=== PATIENT | male | born 1980 | race Caucasian/White ===

== ENCOUNTER 2016-10-28 09:39 | Emergency (ER) | payer SELFPAY ==
[2016-10-28 09:47] VITALS: O2SAT 96
[2016-10-28] MEDS ORDERED: XYLOCAINE 2% HCL 20 ML MDV ONE (10:03)
--- NOTE | 2016-10-28 10:25 | ERPHSYRPT ---
- History of Present Illness Time Seen by Provider: 10/28/16 10:00 Source: patient Exam Limitations: clinical condition Patient Subjective Stated Complaint: lt middle finger abscess Triage Nursing Assessment: abscess around lt middle finger nailbed. yellow drainage noted this morning. radial pulse present. no injury noted Physician History: PATIENT COMPLAINS OF PAIN WITH SWELLING AND YELLOW DISCOLORATION AT BASE OF LEFT MIDDLE FINGER NAIL. HAS SEVERE PAIN, DENIES FEVER OR CHILLS. Occurred: days ago Method of Injury: unknown Quality: constant Severity of Pain-Max: moderate Severity of Pain-Current: moderate Extremities Pain Location: 3rd finger: left Modifying Factors: Improves With: movement Associated Symptoms: other (PAIN) Allergies/Adverse Reactions: No Known Drug Allergies Allergy (Unverified 10/28/16 09:47) Home Medications: No Home Meds 1 ea UD 10/28/16 [History] Hx Tetanus, Diphtheria Vaccination/Date Given: Yes Hx Influenza Vaccination/Date Given: No Hx Pneumococcal Vaccination/Date Given: No Immunizations Up to Date: Yes - Review of Systems Constitutional: No Fever, No Chills Musculoskeletal: Joint Pain, Joint Swelling All Other Systems: Reviewed and Negative - Past Medical History Pertinent Past Medical History: No - Past Surgical History Past Surgical History: No - Social History Smoking Status: Current every day smoker Exposure to second hand smoke: No Drug Use: none Patient Lives Alone: No - Nursing Vital Signs Nursing Vital Signs: Initial Vital Signs Temperature 97.9 F Temperature Source Oral Pulse Rate 80 Respiratory Rate 18 Blood Pressure [Right Arm] 139/94 Pain Intensity 7 - Physical Exam General Appearance: alert Hand Exam: swelling (SWELLING NAIL FOLD WITH YELLOW ERYTHRMA, PURULENT DRAINAGE FROM NAIL FOLD) Neuro/Tendon Exam: normal sensation, normal motor functions SpO2 Interpretation: normal SpO2: 96 Oxygen Delivery: Room Air Procedures - Incision and Drainage Site: NAIL FOLD LEFT MIDDLE Anesthesia: 2% Lidocaine cc's of anesthesia: 4 Blade Size: 11 I & D Procedure: hibiclens prep Results: large amount pus Ordered Tests: Active Orders 24 hr Category Date Time Status CULTURE,WOUND Stat Lab 10/28/16 10:17 Ordered Medication Summary Discontinued Medications Generic Name Dose Route Start Last Admin Trade Name Freq PRN Reason Stop Dose Admin Diphtheria/Tetanus/Acell Pertussis 0.5 ml 10/28/16 10:26 10/28/16 10:33 Adacel Vial IM 10/28/16 10:27 0.5 ml .ONCE ONE Administration Diphtheria/Tetanus/Acell Pertussis Confirm 10/28/16 10:30 Adacel Vial Administered 10/28/16 10:31 Dose 0.5 ml IM .STK-MED ONE Lidocaine HCl Confirm 10/28/16 10:03 Xylocaine 2% Hcl 20 Ml Mdv Administered 10/28/16 10:04 Dose 4 ml .ROUTE .STK-MED ONE - Progress Progress: improved Counseled pt/family regarding: diagnosis, need for follow-up - Departure Time of Disposition: 10:35 Departure Disposition: Home Clinical Impression: I/D PARONYCHIA ABSCESS LEFT MIDDLE DIGIT Condition: Stable Critical Care Time: No Referrals: MINH SMITH [Primary Care Provider] - Additional Instructions: NORCO 10/325 EVERY 4 HOURS FOR PAIN NEEDED. ANTIBIOTIC AUGMENTIN 875MG TWICE DAILY FOR 10 DAYS, WEAR LOOSE BANDAID WHILE AT WORK, LEAVE OPEN TO AIR AT NIGHT. WATCH FOR INCREASING SIGNS OF INFECTION, REDNESS, SWELLING OR DRAINAGE. CONSULT YOUR FAMILY PHYSICIAN IN 1 WEEK FOR FOLLOWUP. Prescriptions: Hydrocodone/APAP 10/325 mg [[place] 10/325 MG Tablet] 1 tab PO Q4H PRN PRN # 20 tablet PRN Reason: Pain Amox Tr/Potass Clav. 875 mg [Augmentin 875-125 Tablet] 875 mg PO BID #20 tablet
[2016-10-28] MEDS ORDERED: Adacel Vial IM ONE ×2 (10:26→10:30)
[2016-10-28 10:53] VITALS: BP 126/96; PULSE 82
== END 2016-10-28 10:50 | disposition home or self-care (01) ==
LOC: ED 09:39
PROC: 0H9GXZZ Drainage of Left Hand Skin, External Approach (ICD-10-PCS; principal; 2016-10-28)
DX: L02.512 Cutaneous abscess of left hand (principal)
CPT/HCPCS: 10060; 29515; 87070; 87077; 87186; 90471; 90715; 99283

== ENCOUNTER 2018-02-23 14:33 | Emergency (ER) | payer OTHER ==
--- NOTE | 2018-02-23 15:12 | ERPHSYRPT ---
- History of Present Illness Time Seen by Provider: 02/23/18 15:01 Source: patient Exam Limitations: no limitations Patient Subjective Stated Complaint: pt reports claudia 2-3 wks ago he got finger of left hand caught between 2 pieces of metal-reports swelling and pain to finger-concerned he might have infection in it Triage Nursing Assessment: pt pink warm and qtc-[id number] and redness noted to knuckle of left finger-no drainage noted-resp easy and nonlabored Physician History: 37-year-old white male arrives with complaint of pain in his left index finger symptoms for 2 weeks. Patient states he smashed it at work. He states he's been swelling over the PIP joint dorsally. He states the area has been red. He has not gotten any drainage from the area. Past medical history is negative. Past surgical history negative. Last tetanus 4 years ago. Occurred: other (2 weeks ago) Method of Injury: other (Caught between pieces of metal at work) Quality: constant Severity of Pain-Max: mild Severity of Pain-Current: mild Extremities Pain Location: 2nd finger: left Modifying Factors: Improves With: nothing Associated Symptoms: none Allergies/Adverse Reactions: No Known Drug Allergies Allergy (Verified 02/23/18 14:43) Home Medications: No Home Meds [No Home Meds] 1 gale TATA 10/28/16 [History] Hx Tetanus, Diphtheria Vaccination/Date Given: Yes Hx Influenza Vaccination/Date Given: No Hx Pneumococcal Vaccination/Date Given: No Immunizations Up to Date: Yes - Review of Systems Constitutional: No Fever, No Chills Eyes: No Symptoms Ears, Nose, & Throat: No Symptoms Respiratory: No Cough, No Dyspnea Cardiac: No Chest Pain, No Edema, No Syncope Abdominal/Gastrointestinal: No Abdominal Pain, No Nausea, No Vomiting, No Diarrhea Genitourinary Symptoms: No Dysuria Musculoskeletal: Other (pain and swelling left index finger) Skin: Other (erythema left dorsal PIP joint second finger) Neurological: No Dizziness, No Focal Weakness, No Sensory Changes Psychological: No Symptoms Endocrine: No Symptoms All Other Systems: Reviewed and Negative - Past Medical History Pertinent Past Medical History: No - Past Surgical History Past Surgical History: No - Social History Smoking Status: Current every day smoker How long have you smoked: yrs Exposure to second hand smoke: Yes Drug Use: none Patient Lives Alone: No - Nursing Vital Signs Nursing Vital Signs: Initial Vital Signs Temperature 98.2 F 02/23/18 14:40 Pulse Rate 64 02/23/18 14:40 Respiratory Rate 18 02/23/18 14:40 Blood Pressure 142/93 02/23/18 14:40 O2 Sat by Pulse Oximetry 98 02/23/18 14:40 Pain Scale Pain Intensity 5 - Physical Exam General Appearance: alert Eyes, Ears, Nose, Throat Exam: moist mucous membranes Neck Exam: non-tender, supple Cardiovascular/Respiratory Exam: chest non-tender Abdominal Exam: non-tender, No guarding Back Exam: normal inspection, No vertebral tenderness Shoulder Exam: normal inspection, non-tender, no evidence of injury, normal ROM Elbow/Forearm Exam: normal inspection, non-tender, no evidence of injury, normal ROM Wrist Exam: normal inspection, non-tender, no evidence of injury, normal ROM Hand Exam: No normal inspection (patient with a chronically 2 mm area of scar tissue left dorsal second PIP joint (hand) mild surrounding edema area not hot full range of motion all fingers, good capillary refill all fingers.) Neuro/Tendon Exam: normal sensation, normal motor functions Mental Status Exam: alert, oriented x 3, cooperative Skin Exam: normal color, warm, dry SpO2 Interpretation: normal (98%) SpO2: 98 Oxygen Delivery: Room Air - Course Nursing assessment & vital signs reviewed: Yes - Radiology Exams Left Other X-ray Interpretation: Interpreted by me (x ray left index finger: no fracture, no subluxation) Ordered Tests: Active Orders 24 hr Category Date Time Status FINGER(S) Stat Exams 02/23/18 15:36 Taken - Progress Progress: improved Progress Note: 02/23/18 15:11 This is a 37-year-old white male who states he caught his left index finger between 2 pieces of metal at work tonight half weeks ago he states he has been having swelling overlying the left dorsal PIP joint he states he had some drainage about a week ago he states he's had a mild erythema to the area. On physical examination patient has what appears to be old scar tissue overlying the left dorsal PIP joint there is some slight edema to the area I don 't see obvious erythema at this time however patient states it has been hot. Will go ahead and get an x-ray of the left index finger. Will go ahead and consider Bactrim DS one orally twice a day for 10 days. 02/23/18 15:43 x ray lef index finger is negative will place patient on bactrrim , advil or tylenol - Departure Time of Disposition: 15:44 Departure Disposition: Home Clinical Impression: Contusion of left index finger Qualifiers: Encounter type: initial encounter Damage to nail status: without damage Qualified Code(s): S60.022A - Contusion of left index finger without damage to nail, initial encounter Condition: Fair Critical Care Time: No Referrals: MINH SMITH [Primary Care Provider] - Additional Instructions: Return home. Bactrim DS one orally twice a day for 10 days. Tylenol every 4 hours or Motrin every 6 hours as needed for pain. Follow-up with your family doctor or company physician. Return for acute distress or for severe symptoms. Prescriptions: Smz/Tmp Ds Tablet [Bactrim Ds Tablet] 1 tab PO BID #20 tablet
[2018-02-23] MEDS ORDERED: BACTRIM DS TABLET PO ONE ×2 (15:46→15:48)
[2018-02-23 16:01] VITALS: BP 141/88; PULSE 60; O2SAT 99
--- NOTE | 2018-02-23 21:54 | XRAY ---
Indication: Crush injury 4-5 weeks ago. Comparison: None 3 views of the left second finger demonstrates posterior PIP focal soft tissue swelling. No other bony, articular, or soft tissue abnormalities.
== END 2018-02-23 16:00 | disposition home or self-care (01) ==
LOC: ED 14:33
DX: S60.022A Contusion of left index finger without damage to nail, initial encounter (principal); W23.0XXA Caught, crushed, jammed, or pinched between moving objects, initial encounter; Y92.69 Other specified industrial and construction area as the place of occurrence of the external cause; Y99.0 Civilian activity done for income or pay
CPT/HCPCS: 73140; 99283; A9270-GY

== ENCOUNTER 2021-01-15 20:57 | Emergency (ER) | payer OTHER, SELFPAY ==
[2021-01-15 21:04] VITALS: BP 133/95; PULSE 98; O2SAT 96
--- NOTE | 2021-01-15 21:23 | ERPHSYRPT ---
- History of Present Illness Time Seen by Provider: 01/15/21 21:18 Source: patient Exam Limitations: no limitations Patient Subjective Stated Complaint: pt states, "I have a bad tooth, I think an abscess". Triage Nursing Assessment: pt c/o swelling and pain to rt lower jaw tooth. Pt states, "I have a bad tooth, think it's an abscess now". It's been hurting x1 month but has gotten worse the last 2 days. I have a dentist appointment in 2 weeks but couldn't wait. Pt has swelling and pain to rt lower jaw, no drainage noted. Physician History: pt has had pain right lower tooth for a few months and noted swelling x 1 day. swallowing OK in ER . tender right lower molar with percussion reporducing pain exactly. some swelling lateral without palp fluctuance. supple neck without tenderness, normal digastric and floor of mouth. multiple carries. discussed risk and benefit of CT and pt wishes to proceed. Timing/Duration: gradual onset, yesterday Severity: moderate ENT Location: dental Prearrival Treatment: over the counter meds Modifying Factors: Improves With: nothing Associated Symptoms: facial pain/swelling, jaw pain, tooth pain, No poor fluid intake, No sore throat, No difficulty swallowing, No voice change Allergies/Adverse Reactions: No Known Drug Allergies Allergy (Verified 01/15/21 21:15) Hx Tetanus, Diphtheria Vaccination/Date Given: Yes Hx Influenza Vaccination/Date Given: No Hx Pneumococcal Vaccination/Date Given: No Immunizations Up to Date: Yes Travel Risk - International Travel Have you traveled outside of the country in past 3 weeks: No - Coronavirus Screening Are you exhibiting any of the following symptoms?: No Close contact with a COVID-19 positive Pt in past 14-21 Days: No - Vaccine Status Have you recieved a Covid-19 vaccination: No - Review of Systems Constitutional: No Fever, No Chills Eyes: No Symptoms Ears, Nose, & Throat: Other (right lower dental pain and swelling) Respiratory: No Cough, No Dyspnea Cardiac: No Chest Pain, No Edema, No Syncope Abdominal/Gastrointestinal: No Abdominal Pain, No Nausea, No Vomiting, No Diarrhea Genitourinary Symptoms: No Dysuria Musculoskeletal: No Back Pain, No Neck Pain Skin: No Rash Neurological: No Dizziness, No Focal Weakness, No Sensory Changes Psychological: No Symptoms Endocrine: No Symptoms All Other Systems: Reviewed and Negative - Past Medical History Pertinent Past Medical History: No Neurological History: No Pertinent History ENT History: No Pertinent History Cardiac History: No Pertinent History Respiratory History: No Pertinent History Endocrine Medical History: No Pertinent History Musculoskeletal History: No Pertinent History GI Medical History: No Pertinent History History: No Pertinent History Psycho-Social History: No Pertinent History Male Reproductive Disorders: No Pertinent History - Past Surgical History Past Surgical History: No Neuro Surgical History: No Pertinent History Cardiac: No Pertinent History Respiratory: No Pertinent History Gastrointestinal: No Pertinent History Genitourinary: No Pertinent History Musculoskeletal: No Pertinent History Male Surgical History: No Pertinent History - Social History Smoking Status: Light tobacco smoker How long have you smoked: yrs Exposure to second hand smoke: Yes Drug Use: none Patient Lives Alone: No - Nursing Vital Signs Nursing Vital Signs: Initial Vital Signs Temperature 98.8 F 01/15/21 21:02 Pulse Rate 98 H 01/15/21 21:02 Respiratory Rate 16 01/15/21 21:02 Blood Pressure 133/95 01/15/21 21:02 O2 Sat by Pulse Oximetry 96 01/15/21 21:02 Pain Scale Pain Intensity 6 - Physical Exam General Appearance: no apparent distress, alert Eye Exam: bilateral eye: PERRL, EOMI Ear Exam: bilateral ear: auricle normal, canal normal, TM normal Nasal Exam: normal inspection Throat Exam: pharynx normal, dental tenderness (right lower molar), mandibular swelling, moist mucus membranes, No excessive drooling, No pharynx swelling, No pharynx tenderness, No tongue swollen, No tonsillar exudate, No tonsillar swelling, No trismus, No uvula swelling, No voice changes Neck Exam: normal inspection, non-tender, supple, full range of motion, trachea midline Cardiovascular/Respiratory Exam: normal breath sounds, regular rate/rhythm Abdominal Exam: non-tender, soft Neurologic Exam: alert, oriented x 3, sensation nml, No motor deficits Skin Exam: normal color, warm, dry SpO2: 96 - Course Nursing assessment & vital signs reviewed: Yes - CT Exams Maxillofacial Bones CT Interpretation: Tele-radiologist Report, Other (right tooth apical abscess with cellulitis , no pointing or floor involvment) Ordered Tests: Active Orders 24 hr Category Date Time Status FACIAL BONES WO CONTRAST [CT] Stat Exams 01/15/21 21:23 Taken CBC W DIFF Stat Lab 01/15/21 21:24 Completed Lab/Rad Data: Laboratory Result Diagrams 01/15/21 21:24 Laboratory Results 01/15/21 Range/Units 21:24 WBC 7.9 (4.0-10.5) K/mm3 RBC 4.99 (4.1-5.6) M/mm3 Hgb 15.1 (12.5-18.0) gm/dl Hct 45.7 (42-50) % MCV 91.6 (78-100) fl MCH 30.3 (26-32) pg MCHC 33.0 (32-36) g/dl RDW 13.0 (11.5-14.0) % Plt Count 187 (150-450) K/mm3 MPV 10.1 (7.5-11.0) fl Gran % 65.2 (36.0-66.0) % Eos # (Auto) 0.05 (0-0.5) Absolute Lymphs (auto) 2.04 (1.0-4.6) Absolute Monos (auto) 0.64 (0.0-1.3) Lymphocytes % 26.0 (24.0-44.0) % Monocytes % 8.1 (0.0-12.0) % Eosinophils % 0.6 (0.00-5.0) % Basophils % 0.1 (0.0-0.4) % Absolute Granulocytes 5.12 (1.4-6.9) Basophils # 0.01 (0-0.4) - Progress Progress: improved, re-examined Counseled pt/family regarding: lab results, diagnosis, need for follow-up, rad results - Departure Departure Disposition: Home Clinical Impression: Dental abscess Condition: Good Critical Care Time: No Referrals: MINH LOPES [ACTIVE STAFF] - Instructions: Tooth Abscess (DC), Tooth Decay, Adult (DC) Additional Instructions: see your dentist or a dentist SAMANTHA this week to removed the tooth to drain abscess. return meantime if not improving, vomiting, increased swelling, fever, trouble swallowing or other concerns. Prescriptions: Amox Tr/Potass Clav. 875 mg [Augmentin 875-125 Tablet] 875 mg PO BID #20 tablet
[2021-01-15 21:41] LABS: Absolute Neutrophil Ct (ANC) 5.12 (1.4-6.9); BASOPHIL % 0.1 % (0.0-0.4); Basophil (Absolute #) 0.01 (0-0.4); Eosinophil % 0.6 % (0.00-5.0); Eosinophil (Absolute #) 0.05 (0-0.5); Hematocrit 45.7 % (42-50); Hemoglobin 15.1 gm/dl (12.5-18.0); Lymphocyte (Absolute #) 2.04 (1.0-4.6); Mean Cell Volume 91.6 fl (78-100); Mean Corpuscular Hemoglobin 30.3 pg (26-32); Mean Platelet Volume 10.1 fl (7.5-11.0); Monocyte (Absolute #) 0.64 (0.0-1.3); Monocytes % 8.1 % (0.0-12.0); Neutrophil % 65.2 % (36.0-66.0); Platelet Count 187 K/mm3 (150-450); Red Blood Count 4.99 M/mm3 (4.1-5.6); White Blood Count 7.9 K/mm3 (4.0-10.5)
[2021-01-15] MEDS ORDERED: Augmentin 875-125 Tablet PO ONE (22:32)
[2021-01-15] MEDS ORDERED: Augmentin 875-125 Tablet ONE (22:44)
--- NOTE | 2021-01-16 07:29 | XRAY ---
Indication: Right facial pain and edema from dental caries. Multiple contiguous axial images obtained through the facial bones. Sagittal and coronal reformatted images obtained. Comparison: None No acute fracture, suspicious bony lesions, or radiopaque foreign body. Orbits including roof, triplett, and floors are intact. Mild right and minimal left maxillary floor mucosal thickening. Remaining paranasal sinuses and nasal passages are clear. There are multiple bilateral dental caries. Right jaw demonstrates mild soft tissue swelling without walled off fluid collection or air possibly cellulitis in the right clinical setting. A few centimeter/subcentimeter cervical and submandibular lymph nodes. Prominent adenoids and palatine tonsils narrows the oropharynx. TMJ bilaterally symmetric. Remaining visualized noncontrasted soft tissues including globes and base of the brain unremarkable. Impression: 1. Right jaw soft tissue swelling. Rule out cellulitis. 2. Multiple bilateral dental caries. 3. Prominent adenoids and tonsils. 4. Bilateral maxillary sinus disease. Comment: Preliminary interpretation was made by [facility]. No critical discrepancy.
== END 2021-01-15 22:59 | disposition home or self-care (01) ==
LOC: ED 20:57
DX: K04.7 Periapical abscess without sinus (principal)
CPT/HCPCS: 36415; 70486; 85025; 99284; A9270-GY

== ENCOUNTER 2022-03-31 14:21 | Emergency (ER) | payer OTHER ==
[2022-03-31 14:33] VITALS: O2SAT 98
--- NOTE | 2022-03-31 14:45 | ERPHSYRPT ---
- History of Present Illness Time Seen by Provider: 03/31/22 14:22 Patient Subjective Stated Complaint: Abscess Triage Nursing Assessment: Patient ambulated back to ED and transferred self to bed. Patient A+O X 3. Patient's skin pink, warm and dry. Patient complains of abscess to left groin area. Patient complains of pain /. Patient states last Saturday he noticed two small red raised areas that have gotten worse. Patient has two abscess's noted to left groin. No drainage noted. Allergies/Adverse Reactions: No Known Drug Allergies Allergy (Verified 03/31/22 14:27) Hx Tetanus, Diphtheria Vaccination/Date Given: Yes Hx Influenza Vaccination/Date Given: No Hx Pneumococcal Vaccination/Date Given: No Immunizations Up to Date: Yes Travel Risk - International Travel Have you traveled outside of the country in past 3 weeks: No - Coronavirus Screening Are you exhibiting any of the following symptoms?: No Close contact with a COVID-19 positive Pt in past 14-21 Days: No - Vaccine Status Have you recieved a Covid-19 vaccination: No - Past Medical History Pertinent Past Medical History: No Neurological History: No Pertinent History ENT History: No Pertinent History Cardiac History: No Pertinent History Respiratory History: No Pertinent History Endocrine Medical History: No Pertinent History Musculoskeletal History: No Pertinent History GI Medical History: No Pertinent History History: No Pertinent History Psycho-Social History: No Pertinent History Male Reproductive Disorders: No Pertinent History - Past Surgical History Past Surgical History: No Neuro Surgical History: No Pertinent History Cardiac: No Pertinent History Respiratory: No Pertinent History Gastrointestinal: No Pertinent History Genitourinary: No Pertinent History Musculoskeletal: No Pertinent History Male Surgical History: No Pertinent History - Social History Smoking Status: Light tobacco smoker How long have you smoked: yrs Exposure to second hand smoke: Yes Drug Use: none Patient Lives Alone: No - Nursing Vital Signs Nursing Vital Signs: Initial Vital Signs Temperature 97.7 F 03/31/22 14:27 Pulse Rate 62 03/31/22 14:27 Respiratory Rate 18 03/31/22 14:27 Blood Pressure 119/77 03/31/22 14:27 O2 Sat by Pulse Oximetry 98 03/31/22 14:27 Pain Scale Pain Intensity 6 - Physical Exam SpO2: 98 - Departure Departure Disposition: Home Clinical Impression: Cellulitis of groin, left Condition: Stable Critical Care Time: No Referrals: STEFANO JOE [COURTESY STAFF] - Follow up/PCP as directed ALIE RODRIGUEZ MD [ACTIVE STAFF] - Follow up/PCP as directed Instructions: Wound Infection Prescriptions: Clindamycin HCl 150 mg [Cleocin 150 mg Capsule] 2 cap PO QID #56 cap
[2022-03-31 14:57] VITALS: BP 114/77; PULSE 88
== END 2022-03-31 15:01 | disposition home or self-care (01) ==
LOC: ED 14:21
DX: L03.314 Cellulitis of groin (principal); Z72.0 Tobacco use; Z28.310 Unvaccinated for COVID-19
CPT/HCPCS: 99281

== ENCOUNTER 2022-03-31 14:26 | Emergency (ER) | payer OTHER | END 2022-03-31 14:38 | disposition left against medical advice (07) | LOC: ED 14:26 | DX: Z53.8 Procedure and treatment not carried out for other reasons (principal) | CPT/HCPCS: 99281 ==

== ENCOUNTER 2023-06-21 17:06 | Emergency (ER) | payer OTHER ==
--- NOTE | 2023-06-21 17:15 | ERPHSYRPT ---
- History of Present Illness Time Seen by Provider: 06/21/23 17:15 Source: patient Exam Limitations: no limitations Physician History: This a 42-year-old white male patient who presents with left cheek swelling. He has a history of dental abscess in the past but he does not feel that it is a dental issue. He has no dental pain. However, he wonders if he was bitten by an insect during the night. He went to bed not having left cheek swelling and woke up with the left cheek swollen. Patient's significant other provided independent, additional history. Patient has no known drug allergies. He has no breathing issues. Timing/Duration: today Severity: mild Associated Symptoms: denies symptoms Allergies/Adverse Reactions: No Known Drug Allergies Allergy (Verified 06/21/23 17:17) Hx Tetanus, Diphtheria Vaccination/Date Given: Yes Hx Influenza Vaccination/Date Given: No Hx Pneumococcal Vaccination/Date Given: No Travel Risk - International Travel Have you traveled outside of the country in past 3 weeks: No - Coronavirus Screening Are you exhibiting any of the following symptoms?: No Close contact with a COVID-19 positive Pt in past 14-21 Days: No - Vaccine Status Have you recieved a Covid-19 vaccination: No - Review of Systems Constitutional: No Symptoms Eyes: No Symptoms Ears, Nose, & Throat: Other (Swelling left cheek) Respiratory: No Symptoms Cardiac: No Symptoms Abdominal/Gastrointestinal: No Symptoms Genitourinary Symptoms: No Symptoms Musculoskeletal: No Symptoms Skin: Cellulitis (Mild, left cheek), Other (Swelling with mild redness left cheek) Neurological: No Symptoms Psychological: No Symptoms Endocrine: No Symptoms Hematologic/Lymphatic: No Symptoms Immunological/Allergic: No Symptoms All Other Systems: Reviewed and Negative - Past Medical History Pertinent Past Medical History: No Neurological History: No Pertinent History ENT History: No Pertinent History Cardiac History: No Pertinent History Respiratory History: No Pertinent History Endocrine Medical History: No Pertinent History Musculoskeletal History: No Pertinent History GI Medical History: No Pertinent History History: No Pertinent History Psycho-Social History: No Pertinent History Male Reproductive Disorders: No Pertinent History - Past Surgical History Past Surgical History: No Neuro Surgical History: No Pertinent History Cardiac: No Pertinent History Respiratory: No Pertinent History Gastrointestinal: No Pertinent History Genitourinary: No Pertinent History Musculoskeletal: No Pertinent History Male Surgical History: No Pertinent History - Social History Smoking Status: Light tobacco smoker How long have you smoked: yrs Exposure to second hand smoke: Yes Drug Use: none Patient Lives Alone: No - Nursing Vital Signs Nursing Vital Signs: Initial Vital Signs Temperature 97.4 F 06/21/23 17:16 Pulse Rate 120 H 06/21/23 17:16 Respiratory Rate 18 06/21/23 17:16 Blood Pressure 131/97 06/21/23 17:16 O2 Sat by Pulse Oximetry 95 06/21/23 17:16 Pain Scale Pain Intensity 4 - Physical Exam General Appearance: no apparent distress, alert, anxiety, thin Eye Exam: PERRL/EOMI, eyes nml inspection Ears, Nose, Throat Exam: normal ENT inspection, moist mucous membranes Neck Exam: normal inspection, non-tender, supple, full range of motion Respiratory Exam: normal breath sounds, lungs clear, airway intact, No chest tenderness, No respiratory distress Cardiovascular Exam: tachycardia Gastrointestinal/Abdomen Exam: soft, normal bowel sounds, No tenderness Rectal Exam: not done Back Exam: normal inspection, normal range of motion, No CVA tenderness, No vertebral tenderness Extremity Exam: normal inspection, normal range of motion, pelvis stable Neurologic Exam: alert, oriented x 3, cooperative, cargo services coordinator II-XII nml as tested, normal mood/affect, nml cerebellar function, nml station & gait, sensation nml Skin Exam: other (Left cheek swelling with mild redness present. No abscess appreciated) Lymphatic Exam: No adenopathy SpO2 Interpretation: normal O2 Delivery: Room Air - Course Nursing assessment & vital signs reviewed: Yes Ordered Tests: Medication Summary Discontinued Medications Generic Name Dose Route Start Last Admin Trade Name Loki PRN Reason Stop Dose Admin Ceftriaxone Sodium 1,000 mg 06/21/23 17:56 Ceftriaxone Sodium 1000 Mg Inj Vial IM 06/21/23 17:57 STAT ONE Methylprednisolone Sodium 0 mg 06/21/23 17:56 Succinate 125 mg/ Sterile IM 06/21/23 17:57 Water 2 ml STAT ONE - Progress Progress: unchanged Progress Note: 06/21/23 18:01 Patient's medical issue is 1 of low complexity. Level complex in the work-up performed is based on review of the patient's past medical history, review the patient's medication list, review the patient's drug allergy list, history of present illness and physical findings on examination. No laboratory or radiographic studies are necessary. This patient looks to have may be mild cellulitis present without the presence of an abscess. He could possibly have allergic reaction well. We will provide him with Rocephin intramuscularly as well as Solu-Medrol intramuscularly. We will then remotely send to his pharmacy prednisone 10 mg 3 times a day for 4 days and a prescription for Bactrim DS. Counseled pt/family regarding: diagnosis, need for follow-up Medical Desision Making - Independent Historian Additional History obtained from: Spouse - Diagnostic Testing Diagnostic test were ordered, analyzed, and reviewed by me: No - Risk of complications The pt has a mod risk of morbidity or mortality based on: Need for prescription drug management - Departure Departure Disposition: Home Clinical Impression: Cheek swelling Condition: Stable Critical Care Time: No Referrals: PHILIP REBOLLEDO [Primary Care Provider] - Follow up/PCP as directed Additional Instructions: Take your medication as prescribed. Return to emergency department if symptoms worsen. Prescriptions: Smz/Tmp Ds Tablet [Bactrim Ds Tablet] 1 udtab PO BID #14 tablet Prednisone 10 mg [Deltasone 10 mg] 10 mg PO TID #12 tablet
[2023-06-21 17:16] VITALS: BP 131/97; PULSE 120; RESP 18; TEMP 97.4; O2SAT 95
[2023-06-21] MEDS ORDERED: solu-MEDROL 125 MG, Sterile H2O 10 ml 2 ML IM ONE ×2 (17:56)
[2023-06-21] MEDS ORDERED: Rocephin 1000 MG INJ IM ONE (17:56)
[2023-06-21] MEDS ORDERED: Rocephin 1000 MG INJ ONE (18:10)
[2023-06-21] MEDS ORDERED: Sterile H2O 10 ml IJ ONE (18:10)
[2023-06-21] MEDS ORDERED: XYLOCAINE 1% HCL 20 ML MDV ONE (18:10)
[2023-06-21] MEDS ORDERED: solu-MEDROL ONE (18:10)
== END 2023-06-21 18:37 | disposition home or self-care (01) ==
LOC: ED 17:06
DX: R22.0 Localized swelling, mass and lump, head (principal); Z79.52 Long term (current) use of systemic steroids; Z28.310 Unvaccinated for COVID-19; Z72.0 Tobacco use
CPT/HCPCS: 96372; 99283; J0696; J2930

== ENCOUNTER 2024-05-25 13:47 | Emergency (ER) | payer SELFPAY ==
[2024-05-25 14:02] VITALS: PULSE 86; TEMP 98.3
--- NOTE | 2024-05-25 14:26 | ERPHSYRPT ---
- History of Present Illness Time Seen by Provider: 05/25/24 13:49 Historian: patient, family Exam Limitations: no limitations Patient Subjective Stated Complaint: Pt was contstipated a couple of weeks ago and he treated it with miralax and other stuff and he stated that he had felt really bloated and like he was having a severe gas pain and then he finally had a bowel movement and then if he ate he would feel the same way, pt finally had a large bowel movement the other day and so he ate a lot and now his abdomen hurts again in the RLQ Triage Nursing Assessment: Pt brought to the ER by his girlfriend, hypertensive, rates pain as 5/10, reports severe abdominal pain to the RQ when he eats, states that it feels like severe gas, pulses normal, skin n/w/d, no difficulty breathing, doesn't appear to be in any distress Physician History: Constipation and upper abdominal pain for last 2 weeks intermittently. Patient took laxative and then finally had a bowel movement. Patient says that when he eats he feels gassy in the stomach. No bleeding anywhere. No fever or chills. No vomiting. Timing/Duration: week(s) (2) Activities at Onset: none Quality: cramping, fullness Abdominal Pain Onset Location: RUQ, LUQ Pain Radiation: no radiation Severity of Pain-Max: moderate Severity of Pain-Current: moderate Modifying Factors: Improves With: nothing Associated Symptoms: other (Constipation and gassy feeling), No diaphoresis, No diarrhea Allergies/Adverse Reactions: No Known Drug Allergies Allergy (Verified 05/25/24 14:02) Hx Tetanus, Diphtheria Vaccination/Date Given: Yes Hx Influenza Vaccination/Date Given: No Hx Pneumococcal Vaccination/Date Given: No Travel Risk - International Travel Have you traveled outside of the country in past 3 weeks: No - Emerging Infectious Disease Are you exhibiting symptoms associated with any current EIDs: Yes Symptoms: Abdominal Pain - Review of Systems Constitutional: No Fever, No Chills Eyes: No Symptoms Ears, Nose, & Throat: No Symptoms Respiratory: No Cough, No Dyspnea Cardiac: No Chest Pain, No Edema, No Syncope Abdominal/Gastrointestinal: Abdominal Pain, Nausea, Constipation, No Vomiting, No Diarrhea Genitourinary Symptoms: No Dysuria Musculoskeletal: No Back Pain, No Neck Pain Skin: No Rash Neurological: No Dizziness, No Focal Weakness, No Sensory Changes Psychological: No Symptoms Endocrine: No Symptoms All Other Systems: Reviewed and Negative - Past Medical History Pertinent Past Medical History: No Neurological History: No Pertinent History ENT History: No Pertinent History Cardiac History: No Pertinent History Respiratory History: No Pertinent History Endocrine Medical History: No Pertinent History Musculoskeletal History: No Pertinent History GI Medical History: No Pertinent History History: No Pertinent History Psycho-Social History: No Pertinent History Male Reproductive Disorders: No Pertinent History - Past Surgical History Past Surgical History: No Neuro Surgical History: No Pertinent History Cardiac: No Pertinent History Respiratory: No Pertinent History Gastrointestinal: No Pertinent History Genitourinary: No Pertinent History Musculoskeletal: No Pertinent History Male Surgical History: No Pertinent History - Social History Smoking Status: Current every day smoker How long have you smoked: vapes Exposure to second hand smoke: Yes Drug Use: none Patient Lives Alone: No - Social Determinants of Health Will the patient participate in the screening: Yes Do you worry about a steady place to live?: No Do you have any problems with any of the following?: No known problems In the past 12 months,have you had to go without utilities?: No Transportation Issues: No Has anyone in your support network made you feel unsafe?: No Have you or anyone in your house had to go without enough: No - Nursing Vital Signs Nursing Vital Signs: Initial Vital Signs Temperature 98.3 F 05/25/24 13:51 Pulse Rate 86 05/25/24 13:51 Blood Pressure 143/93 05/25/24 13:51 O2 Sat by Pulse Oximetry 99 05/25/24 13:51 Pain Scale Pain Intensity 6 - Physical Exam General Appearance: no apparent distress, alert Eye Exam: PERRL/EOMI, eyes nml inspection Ears, Nose, Throat Exam: normal ENT inspection, pharynx normal, moist mucous membranes Neck Exam: normal inspection, non-tender, supple, full range of motion Respiratory Exam: normal breath sounds, lungs clear, No respiratory distress Cardiovascular Exam: regular rate/rhythm, normal heart sounds Gastrointestinal/Abdomen Exam: soft, normal bowel sounds, No tenderness, No distention, No mass, No ecchymosis, No pulsatile mass, No rebound Back Exam: normal inspection, normal range of motion, No CVA tenderness, No vert ebral tenderness Extremity Exam: normal inspection, normal range of motion, pelvis stable Neurologic Exam: alert, oriented x 3, cooperative, normal mood/affect, nml cerebellar function, sensation nml, No motor deficits Skin Exam: normal color, warm, dry SpO2: 99 - Course Nursing assessment & vital signs reviewed: Yes - CT Exams Abdomen/Pelvis CT Interpretation: Other (Nothing acute) Ordered Tests: Active Orders 24 hr Category Date Time Status ABDOMEN AND PELVIS W CONTRAST [CT] Stat Exams 05/25/24 14:11 Completed AMYLASE Stat Lab 05/25/24 14:35 Completed CBC W DIFF Stat Lab 05/25/24 14:35 Completed CMP Stat Lab 05/25/24 14:35 Completed LIPASE Stat Lab 05/25/24 14:35 Completed UA W/RFX UR CULTURE Stat Lab 05/25/24 14:14 Completed Medication Summary Discontinued Medications Generic Name Dose Route Start Last Admin Trade Name Freq PRN Reason Stop Dose Admin Sodium Chloride 1,000 mls @ 999 mls/hr 05/25/24 14:10 05/25/24 16:24 Sodium Chloride 0.9% 1000 Ml IV 05/25/24 15:10 Infused .Q1H1M STA Infusion Sodium Chloride Confirm 05/25/24 14:31 Sodium Chloride 0.9% 1000 Ml Administered 05/25/24 14:32 Dose 1,000 mls @ ud .ROUTE .STK-MED ONE Morphine Sulfate 2 mg 05/25/24 14:26 05/25/24 14:41 Morphine Sulfate 2 Mg/Ml Inj IV 05/25/24 14:27 2 mg STAT ONE Administration Morphine Sulfate Confirm 05/25/24 14:31 Morphine Sulfate 2 Mg/Ml Inj Administered 05/25/24 14:32 Dose 2 mg .ROUTE .STK-MED ONE Ondansetron HCl 4 mg 05/25/24 14:26 05/25/24 14:38 Ondansetron Hcl 4 Mg/2 Ml Vial IV 05/25/24 14:27 4 mg STAT ONE Administration Ondansetron HCl Confirm 05/25/24 14:30 Ondansetron Hcl 4 Mg/2 Ml Vial Administered 05/25/24 14:31 Dose 4 mg .ROUTE .STK-MED ONE Lab/Rad Data: Laboratory Result Diagrams 05/25/24 14:35 05/25/24 14:35 Laboratory Results 05/25/24 05/25/24 05/25/24 Range/Units 14:35 14:35 14:14 WBC 5.4 (4.23-9.07) x10^3/uL RBC 4.94 (4.63-6.08) x10^6/uL Hgb 14.9 (13.7-17.5) g/dL Hct 43.8 (40.1-51.0) % MCV 88.7 (79.0-92.2) fL MCH 30.2 (25.7-32.2) pg MCHC 34.0 (32.3-36.5) g/dL RDW 12.0 (11.6-14.4) % Plt Count 172 (163-337) x10^3/uL MPV 9.6 (9.4-12.4) fL Gran % 62.3 (34.0-67.9) % Immature Gran % (Auto) 0.2 (0.001-0.429) % Nucleat RBC Rel Count 0.0 (0.00-0.2) % Eos # (Auto) 0.25 (0.04-0.54) x10^3/uL Immature Gran # (Auto) 0.01 (0.001-0.031) x10^3u/L Absolute Lymphs (auto) 1.33 (1.32-3.57) x10^3/uL Absolute Monos (auto) 0.40 (0.30-0.82) x10^3/uL Absolute Nucleated RBC 0.00 (0.00-0.012) x10^3u/L Lymphocytes % 24.8 (21.8-53.1) % Monocytes % 7.4 (5.3-12.2) % Eosinophils % 4.7 (0.8-7.0) % Basophils % 0.6 (0.2-1.2) % Absolute Granulocytes 3.35 (1.78-5.38) x10^3/uL Basophils # 0.03 (0.01-0.08) x10^3/uL Sodium 142 (135-145) mmol/L Potassium 3.8 (3.5-5.1) mmol/L Chloride 107 (98-107) mmol/L Carbon Dioxide 25 (22-30) mmol/L Anion Gap 13.1 (5-15) MEQ/L BUN 7 L (9-20) mg/dL Creatinine 0.91 (0.66-1.25) mg/dL Estimated GFR 107.9 ML/MIN Glucose 102 (74-106) mg/dL Calcium 9.0 (8.4-10.2) mg/dL Total Bilirubin 0.70 (0.2-1.3) mg/dL AST 32 (17-59) U/L ALT 28 (0-50) U/L Alkaline Phosphatase 66 (38-126) U/L Serum Total Protein 6.7 (6.3-8.2) g/dL Albumin 3.8 (3.5-5.0) g/dL Amylase 75 (30-110) U/L Lipase 23 (23-300) U/L Urine Color Yellow (Yellow) Urine Appearance Clear (Clear) Urine pH 7.0 (4.6-8.0) Ur Specific [place] 1.010 (1.005-1.030) Urine Protein Negative (Negative) Urine Glucose (UA) Negative (Negative) mg/dL Urine Ketones Negative (Negative) Urine Blood Negative (Negative) Urine Nitrite Negative (Negative) Urine Bilirubin Negative (Negative) Urine Urobilinogen 0.2 (0.2) mg/dL Ur Leukocyte Esterase Negative (Negative) U Hyaline Cast (Auto) NONE SEEN (0-2) /LPF Urine Microscopic RBC 0-2 (0-5) /HPF Urine Microscopic WBC 0-2 (0-5) /HPF Ur Epithelial Cells None Seen (None Seen) /HPF Urine Bacteria None Seen (None Seen) /HPF Urine Culture Reflexed NO (NO) - Progress Progress: improved Medical Desision Making - Risk of complications Low Risk: Low risk of morbidity from additional dx testing or treatment - Departure Departure Disposition: Home Clinical Impression: Abdominal pain Qualifiers: Abdominal location: upper abdomen, unspecified Qualified Code(s): R10.10 - Upper abdominal pain, unspecified Condition: Stable Critical Care Time: No Referrals: PHILIP REBOLLEDO [Primary Care Provider] - Follow up/PCP as directed Additional Instructions: See web content manager for upper GI endoscopy and see PCP for outpatient ultrasound of the gallbladder. Prescriptions: Sucralfate 1 gm [Carafate 1 GM] 1 g PO ACHS 15 Days #30 tablet PANTOPRAZOLE 40 mg Tablet [Protonix 40MG Tablet] 40 mg PO QAM 15 Days #15 tab
[2024-05-25] MEDS ORDERED: Zofran 4 MG/2 ML VIAL ONE (14:30)
[2024-05-25] MEDS ORDERED: Sodium Chloride 0.9% 1000 ML 1,000 ML ONE (14:31)
[2024-05-25] MEDS ORDERED: MORPHINE SULFATE 2 MG INJ ONE (14:31)
[2024-05-25] MEDS: Sodium Chloride 0.9% 1000 ML 1,000 ML IV STA (14:37)
[2024-05-25] MEDS: Zofran 4 MG/2 ML VIAL IV ONE (14:38)
[2024-05-25] MEDS: MORPHINE SULFATE 2 MG INJ IV ONE (14:41)
[2024-05-25 14:43] LABS: Absolute Neutrophil Ct (ANC) 3.35 x10^3/uL (1.78-5.38); BASOPHIL % 0.6 % (0.2-1.2); Basophil (Absolute #) 0.03 x10^3/uL (0.01-0.08); Eosinophil % 4.7 % (0.8-7.0); Eosinophil (Absolute #) 0.25 x10^3/uL (0.04-0.54); Hematocrit 43.8 % (40.1-51.0); Hemoglobin 14.9 g/dL (13.7-17.5); IMMATURE GRAN # 0.01 x10^3u/L (0.001-0.031); IMMATURE GRAN % 0.2 % (0.001-0.429); Lymphocyte (Absolute #) 1.33 x10^3/uL (1.32-3.57); Lymphocytes % 24.8 % (21.8-53.1); Mean Cell Volume 88.7 fL (79.0-92.2); Mean Corpuscular Hemoglobin 30.2 pg (25.7-32.2); Mean Platelet Volume 9.6 fL (9.4-12.4); Monocytes % 7.4 % (5.3-12.2); Neutrophil % 62.3 % (34.0-67.9); Platelet Count 172 x10^3/uL (163-337); Red Blood Count 4.94 x10^6/uL (4.63-6.08); White Blood Count 5.4 x10^3/uL (4.23-9.07)
[2024-05-25 14:50] LABS: Appearance Clear (Clear); Bacteria None Seen /HPF (None Seen); Bilirubin Negative (Negative); Blood Negative (Negative); Epithelial Cells None Seen /HPF (None Seen); Glucose, Urine Negative (Negative); Hyaline Casts NONE SEEN /LPF (0-2); Ketones Negative (Negative); Leukocyte Esterase Negative (Negative); Nitrite Negative (Negative); Protein,Urine Dip Negative (Negative); RBC 0-2 /HPF (0-5); Urobilinogen 0.2 mg/dL (0.2); WBC 0-2 /HPF (0-5)
[2024-05-25 14:58] LABS: ALBUMIN 3.8 g/dL (3.5-5.0); ANION GAP 13.1 MEQ/L (5-15); BILIRUBIN,TOTAL 0.7 mg/dL (0.2-1.3); Creatinine 1 0.91 mg/dL (0.66-1.25); EST GLOMERULAR FILTRATION RATE 107.9 ML/MIN; Potassium 3.8 mmol/L (3.5-5.1); Total Protein 6.7 g/dL (6.3-8.2)
--- NOTE | 2024-05-25 16:20 | XRAY ---
Indication: Abdomen pain 2 weeks. Multiple contiguous axial images obtained through the abdomen and pelvis using 80 cc Isovue 370 contrast. Comparison: None Lung bases clear. Heart not enlarged. Noncontrasted stomach and bowel loops appear nonobstructed with normal appendix. Both kidneys enhance and excrete with 6 mm left mid renal cortical cyst. No free fluid/air. Remaining liver, gallbladder, pancreas, spleen, adrenal glands, kidneys, ureters, bladder, and aorta are normal in CT appearance and attenuation. No pathologic retroperitoneal lymphadenopathy. Osseous structures intact with incidental bilateral L5 spondylolysis with 2-3 mm anterolisthesis. Impression: Incidental tiny left renal cyst and L5 spondylolysis with minimal grade [address] abdomen/pelvis with contrast exam normal.
[2024-05-25 17:35] VITALS: O2SAT 99
[2024-05-25 17:42] VITALS: BP 124/80
== END 2024-05-25 17:41 | disposition home or self-care (01) ==
LOC: ED 13:47
DX: R10.10 Upper abdominal pain, unspecified (principal); Z79.899 Other long term (current) drug therapy; Z72.0 Tobacco use
CPT/HCPCS: 36415; 74177; 80053; 81001; 82150; 83690; 85025; 96360; 96374; 96375; 99284; J2270; J2405

== ENCOUNTER 2024-05-31 17:05 | Emergency (ER) | payer MEDICAID ==
[2024-05-31 17:09] VITALS: TEMP 97.4
[2024-05-31 17:47] LABS: Absolute Neutrophil Ct (ANC) 2.03 x10^3/uL (1.78-5.38); BASOPHIL % 0.4 % (0.2-1.2); Basophil (Absolute #) 0.02 x10^3/uL (0.01-0.08); Eosinophil % 6.5 % (0.8-7.0); Eosinophil (Absolute #) 0.34 x10^3/uL (0.04-0.54); Hematocrit 40.6 % (40.1-51.0); Hemoglobin 13.9 g/dL (13.7-17.5); IMMATURE GRAN # 0.01 x10^3u/L (0.001-0.031); IMMATURE GRAN % 0.2 % (0.001-0.429); Lymphocytes % 43.6 % (21.8-53.1); Mean Cell Volume 86.4 fL (79.0-92.2); Mean Corpuscular Hemoglobin 29.6 pg (25.7-32.2); Mean Corpuscular Hgb Concent. 34.2 g/dL (32.3-36.5); Mean Platelet Volume 9.9 fL (9.4-12.4); Monocyte (Absolute #) 0.57 x10^3/uL (0.30-0.82); Monocytes % 10.8 % (5.3-12.2); Neutrophil % 38.5 % (34.0-67.9); Platelet Count 232 x10^3/uL (163-337); Red Cell Distribution Width 11.7 % (11.6-14.4); White Blood Count 5.3 x10^3/uL (4.23-9.07)
--- NOTE | 2024-05-31 17:47 | ERPHSYRPT ---
- History of Present Illness Time Seen by Provider: 05/31/24 17:35 Historian: patient, family Exam Limitations: no limitations Patient Subjective Stated Complaint: pt here for pain under right breast off and on for several weeks worse today,states makes him sob. was seen her 3-4 days ago given rx and has not filled them. vomited x1 Triage Nursing Assessment: pt alert, walked in, resp easy. chest clear, abd soft, tender to right side, moves all ext well, no edema noted Physician History: pt has had abd pain recently and workup and placed on antiulcer med but did not fill these, and returns today with similar symptoms. He feels like he becomes bloated and then short of breath and this comes and goes. He feels that ithas changed sine last CT. Discussed risks/beenfits with pt and family including rad risks of CT and they with to continue with CBC, Gretta, Lipase, Lactate, UA, CT abd abd Chest, EKG and trop, D DImer and BNP so these are ordered. results discussed with pt and family. Abd soft nontender without peritoneal signs. Timing/Duration: week(s) Activities at Onset: none Quality: burning, cramping, sharpness, stabbing Abdominal Pain Onset Location: RUQ, RLQ Severity of Pain-Max: moderate Severity of Pain-Current: moderate Modifying Factors: Improves With: nothing Associated Symptoms: heartburn, shortness of breath Previous symptoms: same symptoms as today, recently seen, recently treated Allergies/Adverse Reactions: No Known Drug Allergies Allergy (Verified 05/31/24 17:07) Hx Tetanus, Diphtheria Vaccination/Date Given: No Hx Influenza Vaccination/Date Given: No Hx Pneumococcal Vaccination/Date Given: No Immunizations Up to Date: Yes Travel Risk - International Travel Have you traveled outside of the country in past 3 weeks: No - Emerging Infectious Disease Are you exhibiting symptoms associated with any current EIDs: Yes Symptoms: Abdominal Pain - Review of Systems Constitutional: No Fever, No Chills Eyes: No Symptoms Ears, Nose, & Throat: No Symptoms Respiratory: Dyspnea, No Cough Cardiac: No Chest Pain, No Edema, No Syncope Abdominal/Gastrointestinal: Abdominal Pain, Nausea, No Vomiting, No Diarrhea Genitourinary Symptoms: No Dysuria Musculoskeletal: No Back Pain, No Neck Pain Skin: No Rash Neurological: No Dizziness, No Focal Weakness, No Sensory Changes Psychological: No Symptoms Endocrine: No Symptoms Hematologic/Lymphatic: No Symptoms Immunological/Allergic: No Symptoms All Other Systems: Reviewed and Negative - Past Medical History Pertinent Past Medical History: No Neurological History: No Pertinent History ENT History: No Pertinent History Cardiac History: No Pertinent History Respiratory History: No Pertinent History Endocrine Medical History: No Pertinent History Musculoskeletal History: No Pertinent History GI Medical History: No Pertinent History History: No Pertinent History Psycho-Social History: No Pertinent History Male Reproductive Disorders: No Pertinent History - Past Surgical History Past Surgical History: No Neuro Surgical History: No Pertinent History Cardiac: No Pertinent History Respiratory: No Pertinent History Gastrointestinal: No Pertinent History Genitourinary: No Pertinent History Musculoskeletal: No Pertinent History Male Surgical History: No Pertinent History - Social History Smoking Status: Former smoker How long have you smoked: vapes Exposure to second hand smoke: Yes Drug Use: none Patient Lives Alone: No - Social Determinants of Health Will the patient participate in the screening: Yes Do you worry about a steady place to live?: No Do you have any problems with any of the following?: No known problems In the past 12 months,have you had to go without utilities?: No Transportation Issues: No Has anyone in your support network made you feel unsafe?: No Have you or anyone in your house had to go without enough: No - Nursing Vital Signs Nursing Vital Signs: Initial Vital Signs Pulse Rate 91 H 05/31/24 17:06 Respiratory Rate 18 05/31/24 17:06 Blood Pressure 133/85 05/31/24 17:06 O2 Sat by Pulse Oximetry 100 05/31/24 17:06 Pain Scale Pain Intensity 6 - Physical Exam General Appearance: no apparent distress, alert Eye Exam: PERRL/EOMI, eyes nml inspection Ears, Nose, Throat Exam: normal ENT inspection, pharynx normal, moist mucous membranes Neck Exam: normal inspection, non-tender, supple, full range of motion Respiratory Exam: normal breath sounds, lungs clear, No respiratory distress Cardiovascular Exam: regular rate/rhythm, normal heart sounds Gastrointestinal/Abdomen Exam: soft, No tenderness, No mass Back Exam: normal inspection, normal range of motion, No CVA tenderness, No vertebral tenderness Extremity Exam: normal inspection, normal range of motion, pelvis stable Neurologic Exam: alert, oriented x 3, cooperative, normal mood/affect, nml cerebellar function, sensation nml, No motor deficits Skin Exam: normal color, warm, dry SpO2 Interpretation: normal SpO2: 98 O2 Delivery: Room Air - Course Nursing assessment & vital signs reviewed: Yes EKG Interpreted by Me: Sinus Rhythm, NORMAL AXIS, NORMAL INTERVALS, NORMAL QRS, Non-specific ST Changes, Other (early repol) - CT Exams Abdomen/Pelvis CT Interpretation: Tele-radiologist Report, Normal Appendix, Other (reactive nodes; increased stool) Chest CT Interpretation: Tele-radiologist Report, Other (granulomas) Ordered Tests: Active Orders 24 hr Category Date Time Status Older Adult Social Work Specialist STAT Care 05/31/24 17:28 Active EKG-ER Only STAT Care 05/31/24 17:28 Active IV Insertion STAT Care 05/31/24 17:28 Active Pulse Oximetry (ED) STAT Care 05/31/24 17:28 Active ABDOMEN AND PELVIS W/0 CONTRAS [CT] Stat Exams 05/31/24 18:22 Completed CHEST WITHOUT CONTRAST [CT] Stat Exams 05/31/24 18:19 Completed AMYLASE Stat Lab 05/31/24 17:42 Completed CBC W DIFF Stat Lab 05/31/24 17:42 Completed CMP Stat Lab 05/31/24 17:42 Completed D-DIMER QUANTITATIVE Stat Lab 05/31/24 17:51 Completed LIPASE Stat Lab 05/31/24 17:42 Completed Lactic Acid Stat Lab 05/31/24 17:50 Completed Lactic Acid Stat Lab 05/31/24 21:10 Received NT PRO BNPII Stat Lab 05/31/24 17:42 Completed TROPONIN Q4H Lab 05/31/24 17:42 Completed TROPONIN Q4H Lab 05/31/24 21:30 Ordered UA W/RFX UR CULTURE Stat Lab 05/31/24 18:02 Completed Medication Summary Discontinued Medications Generic Name Dose Route Start Last Admin Trade Name Freq PRN Reason Stop Dose Admin Hydromorphone HCl 0.5 mg 05/31/24 19:49 05/31/24 19:51 Hydromorphone 1 Mg/1ml Inj IV 05/31/24 19:50 Not Given STAT ONE Lab/Rad Data: Laboratory Result Diagrams 05/31/24 17:42 05/31/24 17:42 Laboratory Results 05/31/24 05/31/24 05/31/24 Range/Units 18:02 18:02 17:51 WBC (4.23-9.07) x10^3/uL RBC (4.63-6.08) x10^6/uL Hgb (13.7-17.5) g/dL Hct (40.1-51.0) % MCV (79.0-92.2) fL MCH (25.7-32.2) pg MCHC (32.3-36.5) g/dL RDW (11.6-14.4) % Plt Count (163-337) x10^3/uL MPV (9.4-12.4) fL Gran % (34.0-67.9) % Immature Gran % (Auto) (0.001-0.429) % Nucleat RBC Rel Count (0.00-0.2) % Eos # (Auto) (0.04-0.54) x10^3/uL Immature Gran # (Auto) (0.001-0.031) x10^3u/L Absolute Lymphs (auto) (1.32-3.57) x10^3/uL Absolute Monos (auto) (0.30-0.82) x10^3/uL Absolute Nucleated RBC (0.00-0.012) x10^3u/L Lymphocytes % (21.8-53.1) % Monocytes % (5.3-12.2) % Eosinophils % (0.8-7.0) % Basophils % (0.2-1.2) % Absolute Granulocytes (1.78-5.38) x10^3/uL Basophils # (0.01-0.08) x10^3/uL D-Dimer 0.20 (0.0-0.50) mg/L Sodium (135-145) mmol/L Potassium (3.5-5.1) mmol/L Chloride (98-107) mmol/L Carbon Dioxide (22-30) mmol/L Anion Gap (5-15) MEQ/L BUN (9-20) mg/dL Creatinine (0.66-1.25) mg/dL Estimated GFR ML/MIN Glucose (74-106) mg/dL Lactic Acid (0.4-2.0) Calcium (8.4-10.2) mg/dL Total Bilirubin (0.2-1.3) mg/dL AST (17-59) U/L ALT (0-50) U/L Alkaline Phosphatase (38-126) U/L Troponin I (0.000-0.033) ng/mL NT-Pro-B Natriuret Pep (<300) pg/mL Serum Total Protein (6.3-8.2) g/dL Albumin (3.5-5.0) g/dL Amylase (30-110) U/L Lipase (23-300) U/L Urine Color Yellow (Yellow) Urine Appearance Clear (Clear) Urine pH 6.0 (4.6-8.0) Ur Specific Raven[place] <=1.005 (1.005-1.030) Urine Protein Negative (Negative) Urine Glucose (UA) Negative (Negative) mg/dL Urine Ketones Negative (Negative) Urine Blood Negative (Negative) Urine Nitrite Negative (Negative) Urine Bilirubin Negative (Negative) Urine Urobilinogen 0.2 (0.2) mg/dL Ur Leukocyte Esterase Negative (Negative) U Hyaline Cast (Auto) NONE SEEN (0-2) /LPF Urine Microscopic RBC 0-2 (0-5) /HPF Urine Microscopic WBC 0-2 (0-5) /HPF Ur Epithelial Cells None Seen (None Seen) /HPF Urine Bacteria None Seen (None Seen) /HPF Urine Culture Reflexed NO (NO) Influenza Type A Ag NEGATIVE (NEGATIVE) Influenza Type B Ag NEGATIVE (NEGATIVE) RSV (PCR) NEGATIVE (NEGATIVE) SARS-CoV-2 (PCR) NEGATIVE (NEGATIVE) 05/31/24 05/31/24 05/31/24 Range/Units 17:50 17:42 17:42 WBC (4.23-9.07) x10^3/uL RBC (4.63-6.08) x10^6/uL Hgb (13.7-17.5) g/dL Hct (40.1-51.0) % MCV (79.0-92.2) fL MCH (25.7-32.2) pg MCHC (32.3-36.5) g/dL RDW (11.6-14.4) % Plt Count (163-337) x10^3/uL MPV (9.4-12.4) fL Gran % (34.0-67.9) % Immature Gran % (Auto) (0.001-0.429) % Nucleat RBC Rel Count (0.00-0.2) % Eos # (Auto) (0.04-0.54) x10^3/uL Immature Gran # (Auto) (0.001-0.031) x10^3u/L Absolute Lymphs (auto) (1.32-3.57) x10^3/uL Absolute Monos (auto) (0.30-0.82) x10^3/uL Absolute Nucleated RBC (0.00-0.012) x10^3u/L Lymphocytes % (21.8-53.1) % Monocytes % (5.3-12.2) % Eosinophils % (0.8-7.0) % Basophils % (0.2-1.2) % Absolute Granulocytes (1.78-5.38) x10^3/uL Basophils # (0.01-0.08) x10^3/uL D-Dimer (0.0-0.50) mg/L Sodium 142 (135-145) mmol/L Potassium 3.8 (3.5-5.1) mmol/L Chloride 103 (98-107) mmol/L Carbon Dioxide 24 (22-30) mmol/L Anion Gap 18.3 H (5-15) MEQ/L BUN 8 L (9-20) mg/dL Creatinine 1.11 (0.66-1.25) mg/dL Estimated GFR 85.0 ML/MIN Glucose 79 (74-106) mg/dL Lactic Acid 2.5 H (0.4-2.0) Calcium 9.5 (8.4-10.2) mg/dL Total Bilirubin 0.60 (0.2-1.3) mg/dL AST 37 (17-59) U/L ALT 31 (0-50) U/L Alkaline Phosphatase 62 (38-126) U/L Troponin I < 0.012 (0.000-0.033) ng/mL NT-Pro-B Natriuret Pep 40.7 (<300) pg/mL Serum Total Protein 7.3 (6.3-8.2) g/dL Albumin 4.2 (3.5-5.0) g/dL Amylase 58 (30-110) U/L Lipase 25 (23-300) U/L Urine Color (Yellow) Urine Appearance (Clear) Urine pH (4.6-8.0) Ur Specific Raven[place] (1.005-1.030) Urine Protein (Negative) Urine Glucose (UA) (Negative) mg/dL Urine Ketones (Negative) Urine Blood (Negative) Urine Nitrite (Negative) Urine Bilirubin (Negative) Urine Urobilinogen (0.2) mg/dL Ur Leukocyte Esterase (Negative) U Hyaline Cast (Auto) (0-2) /LPF Urine Microscopic RBC (0-5) /HPF Urine Microscopic WBC (0-5) /HPF Ur Epithelial Cells (None Seen) /HPF Urine Bacteria (None Seen) /HPF Urine Culture Reflexed (NO) Influenza Type A Ag (NEGATIVE) Influenza Type B Ag (NEGATIVE) RSV (PCR) (NEGATIVE) SARS-CoV-2 (PCR) (NEGATIVE) 05/31/24 Range/Units 17:42 WBC 5.3 (4.23-9.07) x10^3/uL RBC 4.70 (4.63-6.08) x10^6/uL Hgb 13.9 (13.7-17.5) g/dL Hct 40.6 (40.1-51.0) % MCV 86.4 (79.0-92.2) fL MCH 29.6 (25.7-32.2) pg MCHC 34.2 (32.3-36.5) g/dL RDW 11.7 (11.6-14.4) % Plt Count 232 (163-337) x10^3/uL MPV 9.9 (9.4-12.4) fL Gran % 38.5 (34.0-67.9) % Immature Gran % (Auto) 0.2 (0.001-0.429) % Nucleat RBC Rel Count 0.0 (0.00-0.2) % Eos # (Auto) 0.34 (0.04-0.54) x10^3/uL Immature Gran # (Auto) 0.01 (0.001-0.031) x10^3u/L Absolute Lymphs (auto) 2.30 (1.32-3.57) x10^3/uL Absolute Monos (auto) 0.57 (0.30-0.82) x10^3/uL Absolute Nucleated RBC 0.00 (0.00-0.012) x10^3u/L Lymphocytes % 43.6 (21.8-53.1) % Monocytes % 10.8 (5.3-12.2) % Eosinophils % 6.5 (0.8-7.0) % Basophils % 0.4 (0.2-1.2) % Absolute Granulocytes 2.03 (1.78-5.38) x10^3/uL Basophils # 0.02 (0.01-0.08) x10^3/uL D-Dimer (0.0-0.50) mg/L Sodium (135-145) mmol/L Potassium (3.5-5.1) mmol/L Chloride (98-107) mmol/L Carbon Dioxide (22-30) mmol/L Anion Gap (5-15) MEQ/L BUN (9-20) mg/dL Creatinine (0.66-1.25) mg/dL Estimated GFR ML/MIN Glucose (74-106) mg/dL Lactic Acid (0.4-2.0) Calcium (8.4-10.2) mg/dL Total Bilirubin (0.2-1.3) mg/dL AST (17-59) U/L ALT (0-50) U/L Alkaline Phosphatase (38-126) U/L Troponin I (0.000-0.033) ng/mL NT-Pro-B Natriuret Pep (<300) pg/mL Serum Total Protein (6.3-8.2) g/dL Albumin (3.5-5.0) g/dL Amylase (30-110) U/L Lipase (23-300) U/L Urine Color (Yellow) Urine Appearance (Clear) Urine pH (4.6-8.0) Ur Specific [place] (1.005-1.030) Urine Protein (Negative) Urine Glucose (UA) (Negative) mg/dL Urine Ketones (Negative) Urine Blood (Negative) Urine Nitrite (Negative) Urine Bilirubin (Negative) Urine Urobilinogen (0.2) mg/dL Ur Leukocyte Esterase (Negative) U Hyaline Cast (Auto) (0-2) /LPF Urine Microscopic RBC (0-5) /HPF Urine Microscopic WBC (0-5) /HPF Ur Epithelial Cells (None Seen) /HPF Urine Bacteria (None Seen) /HPF Urine Culture Reflexed (NO) Influenza Type A Ag (NEGATIVE) Influenza Type B Ag (NEGATIVE) RSV (PCR) (NEGATIVE) SARS-CoV-2 (PCR) (NEGATIVE) - Progress Progress: improved, re-examined Progress Note: 05/31/24 21:18 discussed results with pt and family and that we have not determined a cause for his symptoms and although he has constipation, there still could be serious conditions even cardiac or cardiovascular/vascular or other serious conditions developing undetected - family and pt wish DC and outpt f/u/w/u rather than further eval in ER or hospital and they have the capacity to make this choice. Counseled pt/family regarding: lab results, diagnosis, need for follow-up, rad results Medical Desision Making - Independent Historian Additional History obtained from: Family - Discussion of managment Reviewed:: Test results, Need for additional workup Agreed on:: Treatment plan, need for follow-up - Diagnostic Testing Diagnostic test were ordered, analyzed, and reviewed by me: Yes Radiological Interpretation: Interpreted by me, Reviewed by me, Teleradiologist Report - Risk of complications The pt has a mod risk of morbidity or mortality based on: Need for prescription drug management The pt has a high risk of morbidity or mortality based on: Decision regarding hospitilization or escalation of hosp level of care - Departure Departure Disposition: Home Clinical Impression: abdominal pain/chest pain of unk etiolog, Constipation, Dehydration Condition: Good Critical Care Time: No Referrals: PHILIP REBOLLEDO [Primary Care Provider] - Follow up/PCP as directed Instructions: Severe Abdominal Pain, Adult (DC), Dehydration, Adult ED, Constipation, Adult ED, High-fiber diet Additional Instructions: we have not yet determined a cause for your symptoms although we did find constipation . Followup with your Drs is important to reduce risk factors for other potential conditions as well. Return meantime if not improving, vomiting, dizziness fever, short of breath more chest pain or any other concerns. Use enemas and stool softener to help relieve the constipation. THere is also some dehydration so get plenty of fluids. your Dr. may want to re check your lactate level to see that this has improved. follow-up also with your Dr. for the granulomas in the lung.
[2024-05-31 18:03] LABS: ALBUMIN 4.2 g/dL (3.5-5.0); ANION GAP 18.3 MEQ/L (5-15); BILIRUBIN,TOTAL 0.6 mg/dL (0.2-1.3); Calcium 9.5 mg/dL (8.4-10.2); Creatinine 1 1.11 mg/dL (0.66-1.25); Potassium 3.8 mmol/L (3.5-5.1); Total Protein 7.3 g/dL (6.3-8.2)
[2024-05-31 18:15] LABS: Appearance Clear (Clear); Bacteria None Seen /HPF (None Seen); Bilirubin Negative (Negative); Blood Negative (Negative); Epithelial Cells None Seen /HPF (None Seen); Glucose, Urine Negative (Negative); Hyaline Casts NONE SEEN /LPF (0-2); Ketones Negative (Negative); Leukocyte Esterase Negative (Negative); Nitrite Negative (Negative); Protein,Urine Dip Negative (Negative); RBC 0-2 /HPF (0-5); Specific Gravity <=1.005 (1.005-1.030); Urobilinogen 0.2 mg/dL (0.2); WBC 0-2 /HPF (0-5)
[2024-05-31 18:16] LABS: NT PRO BNPII 40.7 pg/mL (<300); TROPONIN < 0.012 ng/mL (0.000-0.033)
[2024-05-31 18:40] LABS: INFLUENZA A NEGATIVE (NEGATIVE); INFLUENZA B NEGATIVE (NEGATIVE); RESPIRATORY SYNCTIAL VIRUS NEGATIVE (NEGATIVE); SARS-CoV-2 Xpert Express NEGATIVE (NEGATIVE)
--- NOTE | 2024-05-31 19:06 | XRAY ---
CLINICAL HISTORY: shortness of breath COMPARISON: None. TECHNIQUE: Contiguous axial CT images of the chest were acquired without administration of intravenous contrast. Coronal and sagittal reconstructions were obtained. One of the following dose reduction techniques was utilized for this exam: Automated exposure control, adjustment of the mA and/or kV according to patient size, and use of iterative reconstruction. CTDI:7.30mGy, DLP: 293.44mGy*cm. FINDINGS: Lungs: Isolated calcified granulomas smaller than 5 mm in both lung parenchyma. The lung parenchyma is clear with no evidence of consolidation or collapse. No pulmonary masses are identified. No evidence of interstitial lung disease or emphysema. No pleural effusion or pleural thickening. Mediastinum: The mediastinum is normal in size and contour. No mediastinal mass or abnormal lymphadenopathy. The heart size is within normal limits. Hilar Structures: The hilar structures appear normal without enlargement or abnormality. Trachea and Main Bronchi: The trachea and main bronchi are patent without evidence of obstruction or abnormality. Chest Wall: The chest wall is unremarkable with no evidence of soft tissue abnormalities. Upper Abdomen: Visualized portions of the liver, spleen, adrenal glands, and kidneys are unremarkable. Bones: Visualized osseous structures are normal, with no evidence of fracture or lytic/sclerotic lesions. Spondylo-degenerative changes of the thoracic spine are seen. IMPRESSION: 1. No acute cardio-pulmonary abnormality was seen. 2. Isolated calcified granulomas smaller than 5 mm in both lung parenchyma. 3. Mild spondylosis-degenerative changes of the thoracic spine. Electronically Signed by: Lamont Daniel MD. (05/31/2024 19:01:54 EDT)
--- NOTE | 2024-05-31 19:32 | XRAY ---
CLINICAL HISTORY: persistant distension pain COMPARISON: Comparison is made with previous CT dated 05/25/2024. TECHNIQUE: Non-contrast CT of the abdomen and pelvis was performed, with the following protocol: axial images, and reconstructed coronal and sagittal images. One of the following dose reduction techniques was utilized for this exam: Automated exposure control, adjustment of the mA and/or kV according to patient size, and use of iterative reconstruction. CTDI: 10.66 mGy, DLP: 561.93 mGy*cm. FINDINGS: Scan through the lower chest reveals isolated calcified granulomas in both lung bases, already mentioned in the thorax CT from today. Abdomen: Liver: Normal in size, shape, and density. No focal lesions, cysts, or masses were identified. Gallbladder and Biliary System: The gallbladder is normal in size and shape. No wall thickening, pericholecystic fluid, or gallstones were identified. Pancreas: Pancreatic head, body, and tail are visualized and appear normal in size and density. No pancreatic masses or calcifications were noted. Spleen: Normal in size, shape, and density. No splenic lesions or masses were identified. Kidneys and Adrenal Glands: Both kidneys are normal in size, shape, and position. Cortical thickness is within normal limits. No renal calculi or hydronephrosis. Adrenal glands are unremarkable. Abdominal Aorta and Vessels: The abdominal aorta and major branches without evidence of an aneurysm or significant atherosclerosis. Left para-aortic lymph nodes not exceeding the adenomegalic range and a 9.5 mm homolateral primitive iliac lymph node, probably reactive. Pelvis: Urinary Bladder: Normal in contour and wall thickness. No intraluminal lesions. Prostate: Normal in size and contour. No masses or abnormal thickening. Seminal Vesicles: Normal appearance without abnormal enlargement or mass. Peritoneal and Retroperitoneal Structures: No free fluid or abnormal fluid collections were identified within the abdomen or pelvis. Small umbilical hernia with fatty content, without inflammatory changes. Bowel: The visualized bowel loops are normal in caliber and appearance. No evidence of bowel obstruction or wall thickening. Abundant stool in the colon. Cecal appendix of preserved caliber without inflammatory changes. Bones and Soft Tissues: Mild signs of lumbar spondylosis. 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 Small bone island in the right femoral head. IMPRESSION: 1. No acute findings are seen. 2. Reactive left para-aortic and iliac lymph nodes, without changes. 3. Abundant stool in the colon, not seen in previous CT. 4. No other significant changes. Electronically Signed by: Lamont Daniel MD. (05/31/2024 19:28:18 EDT)
[2024-05-31] MEDS: Hydromorphone 1 mg/ml Injection IV ONE (19:51)
[2024-05-31 20:08] VITALS: PULSE 69; RESP 18
[2024-05-31 21:06] VITALS: O2SAT 98
[2024-05-31 21:26] VITALS: BP 105/72
== END 2024-05-31 21:39 | disposition home or self-care (01) ==
LOC: ED 17:05
DX: K59.00 Constipation, unspecified (principal); E86.0 Dehydration; R10.9 Unspecified abdominal pain; R07.9 Chest pain, unspecified
CPT/HCPCS: 0241U; 36000; 36415; 71250; 74176; 80053; 81001; 82150; 83605; 83690; 83880; 84484; 85025; 85379; 93005; 93041; 94760; 99284